=== PATIENT | female | born 1980 | race Caucasian/White ===

== ENCOUNTER 2018-04-23 22:15 | Emergency (ER) | payer MEDICAID ==
[2018-04-23 22:37] VITALS: BP 127/67
--- NOTE | 2018-04-23 22:37 | EDM.PDOC ---
ED HPI GENERAL MEDICAL PROBLEM - General Chief Complaint: Respiratory Problem Stated Complaint: COLD/FLU Time Seen by Provider: 04/23/18 22:36 Source of Information: Reports: Patient - History of Present Illness INITIAL COMMENTS - FREE TEXT/NARRATIVE: HISTORY AND PHYSICAL: History of present illness: [Patient presents with cough and general malaise for the last 48 hours mild sore throat intermittent subjective fever no nausea vomiting intermittent chills sweats no headache dizziness or palpitation no bowel or urine symptoms Patient has just stopped menstruating yesterday ] Review of systems: As per history of present illness and below otherwise all systems reviewed and negative. Past medical history: As per history of present illness and as reviewed below otherwise noncontributory. Surgical history: As per history of present illness and as reviewed below otherwise noncontributory. Social history: No reported history of drug or alcohol abuse. Family history: As per history of present illness and as reviewed below otherwise noncontributory. Physical exam: HEENT: Atraumatic, normocephalic, pupils reactive, negative for conjunctival pallor or scleral icterus, mucous membranes moist, throat clear, neck supple, nontender, trachea midline. Lungs: Clear to auscultation, breath sounds equal bilaterally, chest nontender. Heart: S1S2, regular, negative for clicks, rubs, or JVD. Abdomen: Soft, nondistended, nontender. Negative for masses or hepatosplenomegaly. Negative for costovertebral tenderness. Pelvis: Stable nontender. Genitourinary: Deferred. Rectal: Deferred. Extremities: Atraumatic, negative for cords or calf pain. Neurovascular unremarkable. Neuro: Awake, alert, oriented. Cranial nerves II through XII unremarkable. Cerebellum unremarkable. Motor and sensory unremarkable throughout. Exam nonfocal. Diagnostics: [Influenza/strep Chest 1 view ] Therapeutics: [ Tamiflu Phenergan with codeine ] albuterol HFA Medrol Dosepak Rest fluids nutrition Impression: [ influenza ] Definitive disposition and diagnosis as appropriate pending reevaluation and review of above. chest area Pain Score (Numeric/FACES): 8 - Related Data Allergies Allergy/AdvReac Type Severity Reaction Status Date / Time No Known Allergies Allergy Verified 04/23/18 22:32 Home Meds: Home Meds Omeprazole 40 mg PO DAILY 04/23/18 [History] ED ROS GENERAL - Review of Systems Review Of Systems: See Below ED EXAM, GENERAL - Physical Exam Exam: See Below Course - Vital Signs Last Recorded V/S: Last Vital Signs Temp 98.6 F 04/23/18 22:30 Pulse 120 H 04/23/18 22:30 Resp 20 04/23/18 22:30 BP 127/67 04/23/18 22:30 Pulse Ox 98 04/23/18 22:30 - Orders/Labs/Meds Orders: Active Orders 24 hr Category Date Time Status RT Aerosol Therapy [RC] ASDIRECTED Care 04/23/18 23:01 Active CULTURE STREP A CONFIRMATION [RM] Stat Lab 04/23/18 22:30 Results STREP SCRN A RAPID W CULT CONF [RM] Stat Lab 04/23/18 22:30 Results Meds: Medications Discontinued Medications Generic Name Dose Route Start Last Admin Trade Name Freq PRN Reason Stop Dose Admin Albuterol/Ipratropium 3 ml 04/23/18 23:01 Duoneb 3.0-0.5 Mg/3 Ml NEB 04/23/18 23:02 ONETIME ONE Methylprednisolone Sodium Succinate 125 mg 04/23/18 23:01 Solu-Medrol IM 04/23/18 23:02 ONETIME ONE Departure - Departure Time of Disposition: 23:28 Disposition: Home, Self-Care 01 Condition: Good Clinical Impression: Influenza - Discharge Information Referrals: PCP,None [Primary Care Provider] - Forms: ED Department Discharge Additional Instructions: The following information is given to patients seen in the emergency department who are being discharged to home. This information is to outline your options for follow-up care. We provide all patients seen in our emergency department with a follow-up referral. The need for follow-up, as well as the timing and circumstances, are variable depending upon the specifics of your emergency department visit. If you don't have a primary care physician on staff, we will provide you with a referral. We always advise you to contact your personal physician following an emergency department visit to inform them of the circumstance of the visit and for follow-up with them and/or the need for any referrals to a consulting specialist. The emergency department will also refer you to a specialist when appropriate. This referral assures that you have the opportunity for follow-up care with a specialist. All of these measure are taken in an effort to provide you with optimal care, which includes your follow-up. Under all circumstances we always encourage you to contact your private physician who remains a resource for coordinating your care. When calling for follow-up care, please make the office aware that this follow-up is from your recent emergency room visit. If for any reason you are refused follow-up, please contact the [facility] emergency department at and asked to speak to the emergency department charge nurse. - My Orders Last 24 Hours: My Active Orders 04/23/18 22:30 CULTURE STREP A CONFIRMATION [RM] Stat STREP SCRN A RAPID W CULT CONF [RM] Stat 04/23/18 23:01 RT Aerosol Therapy [RC] ASDIRECTED - Assessment/Plan Last 24 Hours: My Active Orders 04/23/18 22:30 CULTURE STREP A CONFIRMATION [RM] Stat STREP SCRN A RAPID W CULT CONF [RM] Stat 04/23/18 23:01 RT Aerosol Therapy [RC] ASDIRECTED
[2018-04-23] MEDS ORDERED: Albuterol/Ipratropium 3.0-0.5 MG/3 ML Neb Soln NEB ONE (23:01)
[2018-04-23] MEDS ORDERED: methylPREDNISolone Sodium Succinate 125 MG/2 ML SDV IM ONE (23:01)
--- NOTE | 2018-04-23 23:07 | CR ---
INDICATION: Chest tightness, history of pneumonia TECHNIQUE: Chest radiograph 1 view COMPARISON: None FINDINGS: Mediastinum: The mediastinum is normal in appearance. The heart silhouette is normal in size and morphology. Lung: Both lungs are unremarkable in appearance. No sign of pleural effusion seen. No pneumothorax is identified. Musculoskeletal: Unremarkable for age. IMPRESSION: 1. No acute cardiopulmonary disease is seen. Dictated by: Piotr Manning MD @ 04/23/2018 23:06:05 (Electronically Signed)
== END 2018-04-23 23:49 | disposition home or self-care (01) ==
LOC: MW.ED 22:15
DX: J10.1 Influenza due to other identified influenza virus with other respiratory manifestations (principal)
CPT/HCPCS: 71045; 87081; 87804; 87880; 96372; 99284; J2930; J7620-GY

== ENCOUNTER 2022-04-28 12:10 | Emergency (ER) | payer MEDICAID ==
[2022-04-28] MEDS ORDERED: Sodium Chloride 0.9% 10 ML Syringe FLUSH PRN (12:45)
[2022-04-28] MEDS ORDERED: Sodium Chloride 0.9% 2.5 ML Syringe FLUSH PRN (12:45)
[2022-04-28] MEDS ORDERED: Ampicillin/Sulbactam Na 3 GM in Sodium Chloride 0.9% 50 ML IV STA (12:48)
[2022-04-28] MEDS ORDERED: Morphine 4 MG/ML Syringe IVPUSH STA ×2 (12:48→14:31)
[2022-04-28] MEDS ORDERED: Sodium Chloride 0.9% 1,000 ML IV STA (12:49)
[2022-04-28 14:05] LABS: CARBON DIOXIDE,CO2 27.5 mmol/L (21.0-32.0); POTASSIUM,K 4.3 mmol/L (3.5-5.1)
[2022-04-28] MEDS ORDERED: Iopamidol 755 MG/ML 500 ML Multipack Bottle IVPUSH ONE (14:25)
[2022-04-28] MEDS ORDERED: methylPREDNISolone Sodium Succinate 125 MG/2 ML SDV IVPUSH STA (15:43)
[2022-04-28 16:52] VITALS: BP 130/69
[2022-04-28 17:21] VITALS: PULSE 106
== END 2022-04-28 17:30 ==
LOC: MW.ED 12:10
DX: K12.2 Cellulitis and abscess of mouth (principal); D72.825 Bandemia; R74.01 Elevation of levels of liver transaminase levels; Z72.0 Tobacco use
CPT/HCPCS: 36415; 70491; 80053; 83605; 85025; 86308; 87040; 87651; 96361; 96365; 96375; 96376; 99285; J0295; J2270; J2930; J3490; J7030; J7050; Q9967